=== PATIENT | female | born 1980 | race Caucasian/White ===

== ENCOUNTER 2020-01-03 15:00 | Emergency (ER) | payer BC, MEDICAID ==
[~2020-01-03] VITALS: Ht 152.4 cm; Wt 81.6 kg
[2020-01-03 15:06] VITALS: BP_SYST 137
[2020-01-03] MEDS ORDERED: AMPICILLIN SODIUM/SULBACTAM NA 3 GM in NS 100 ML IV ONE (15:30)
[2020-01-03] MEDS ORDERED: NACL 0.9% 1,000 ML IV ONE (15:30)
[2020-01-03] MEDS ORDERED: DIPHENHYDRAMINE INJ 50 MG/ML VIAL IVP ONE (15:30)
[2020-01-03] MEDS ORDERED: MORPHINE 4 MG/ML INJ. SYRINGE IVP ONE ×2 (15:30→18:15)
[2020-01-03] MEDS ORDERED: AMPICILLIN SODIUM/SULBACTAM NA 3 GM VIAL ONE (15:48)
[2020-01-03 16:23] LABS: CALCIUM 8.1 mg/dL (8.4-11.0); CREATININE 0.71 mg/dL (0.55-1.30); POTASSIUM 4.2 mmol/L (3.5-5.1)
[2020-01-03 16:40] LABS: ALBUMIN 3.4 g/dL (3.4-4.8); TOTAL BILIRUBIN 0.2 mg/dL (0.0-1.0)
[2020-01-03 16:43] LABS: BASOPHILS % (AUTO) 0.6 % (0.0-2.0); EOSINOPHILS # (AUTO) 0.1 K/uL (0.0-0.4); EOSINOPHILS % (AUTO) 1.2 % (0.0-4.0); HEMATOCRIT 33.3 % (36-48); HEMOGLOBIN 10.5 g/dL (12.0-16.0); LYMPHOCYTES # (AUTO) 1.6 K/uL (1.0-5.5); LYMPHOCYTES % (AUTO) 24.6 % (20.5-51.5); MEAN CORPUSCULAR HEMOGLOBIN 23 pg (27-31); MEAN CORPUSCULAR HGB CONC 32 % (32-36); MEAN CORPUSCULAR VOLUME 73 fL (79.0-98.0); MONOCYTES # (AUTO) 0.5 K/uL (0.0-1.0); NEUTROPHILS # (AUTO) 4.3 K/uL (1.8-7.7); NEUTROPHILS % (AUTO) 66.6 % (40.0-70.0); PLATELET COUNT (AUTO) 352 K/uL (130-430); RED BLOOD CELL COUNT(AUTO) 4.53 MIL/uL (4.2-6.2); RED CELL DISTRIBUTION WIDTH 16.7 % (9.0-15.0); WHITE BLOOD COUNT (AUTO) 6.5 K/uL (4.8-10.8)
[2020-01-03] MEDS ORDERED: ONDANSETRON HCL 4 MG/2 ML VIAL ONE (18:26)
[2020-01-03] MEDS ORDERED: ONDANSETRON HCL 4 MG/2 ML VIAL IVP ONE (18:30)
[2020-01-03] MEDS ORDERED: methylPREDNISolone SOD SUCC/PF 62.5 MG/ML VIAL IVP ONE (19:15)
[2020-01-03 20:00] VITALS: BP_SYST 126
== END 2020-01-03 20:00 | disposition short-term general hospital (02) ==
LOC: SED 15:00
DX: J36 Peritonsillar abscess (principal); Z20.828 Contact with and (suspected) exposure to other viral communicable diseases
CPT/HCPCS: 36415; 80053; 81025; 83605; 85025; 87040; 87426; 96365; 96375; 96376; 99285; J0295; J1200; J2270; J2405; J2930; J7030

== ENCOUNTER 2023-12-03 18:11 | Emergency (ER) | payer BC, MEDICAID ==
[~2023-12-03] VITALS: Ht 149.9 cm; Wt 81.6 kg
[2023-12-03 18:25] VITALS: BP_SYST 137; PULSE 79; RESP 22; TEMP 98.9; O2SAT 99
[2023-12-03 19:42] LABS: HEMOGLOBIN 12.7 g/dL (12.0-16.0); MONOCYTES # (AUTO) 0.5 K/uL (0.0-1.0); NEUTROPHILS # (AUTO) 4.9 K/uL (1.8-7.7)
[2023-12-03 19:46] LABS: BASOPHILS # (AUTO) 0.1 K/uL (0.0-0.2); BASOPHILS % (AUTO) 0.5 % (0.0-2.0); EOSINOPHILS # (AUTO) 0.2 K/uL (0.0-0.4); EOSINOPHILS % (AUTO) 2.7 % (0.0-4.0); HEMATOCRIT 36.3 % (36-48); LYMPHOCYTES # (AUTO) 3.6 K/uL (1.0-5.5); LYMPHOCYTES % (AUTO) 38.6 % (20.5-51.5); MEAN CORPUSCULAR HEMOGLOBIN 30 pg (27-31); MEAN CORPUSCULAR HGB CONC 35 % (32-36); MEAN CORPUSCULAR VOLUME 86 fL (79.0-98.0); MONOCYTES % (AUTO) 5.1 % (1.7-9.3); NEUTROPHILS % (AUTO) 53.1 % (40.0-70.0); PLATELET COUNT (AUTO) 283 K/uL (130-430); RED BLOOD CELL COUNT(AUTO) 4.21 MIL/uL (4.2-6.2); RED CELL DISTRIBUTION WIDTH 12.7 % (9.0-15.0); WHITE BLOOD COUNT (AUTO) 9.3 K/uL (4.8-10.8)
[2023-12-03 19:52] LABS: BILIRUBIN,URINE NEGATIVE (NEGATIVE); CLARITY/URINE CLEAR (CLEAR); COLOR,URINE YELLOW (YELLOW); GLUCOSE,URINE NEGATIVE (NEGATIVE); KETONES,URINE TRACE (NEGATIVE); LEUKOCYTE ESTERASE ,URINE NEGATIVE (NEGATIVE); NITRITE, URINE NEGATIVE (NEGATIVE); PH,URINE 6.5 (5.0-8.0); PROTEIN URINE NEGATIVE (NEGATIVE); UROBILINOGEN,URINE 0.2 (0.2-1.0)
[2023-12-03 20:00] LABS: ALBUMIN 3.4 g/dL (3.4-4.8); BILIRUBIN,DIRECT 0.1 mg/dL (0.0-0.3); CALCIUM 8.8 mg/dL (8.4-11.0); CREATININE 0.95 mg/dL (0.55-1.30); POTASSIUM 4.9 mmol/L (3.5-5.1); TOTAL BILIRUBIN 0.1 mg/dL (0.0-1.0); TOTAL PROTEIN, SERUM 6.8 g/dL (6.4-8.3)
[2023-12-03 20:04] LABS: BACTERIA,URINE RARE /HPF (None Seen); BLOOD, URINE TRACE (NEGATIVE); RBC,URINE 0-3 /HPF (0-3); WBC,URINE 0-3 /HPF (0-3)
[2023-12-03 20:05] LABS: MUCUS,URINE None Seen /LPF (None Seen)
[2023-12-03 20:06] LABS: SERUM HCG (QUALITATIVE) NEGATIVE (NEGATIVE)
[2023-12-03] MEDS: PANTOPRAZOLE SODIUM 40 MG/VIAL (PROTONIX) IVP ONE (20:12)
[2023-12-03] MEDS: NACL 0.9% 1,000 ML IV ONE (20:12)
[2023-12-03] MEDS: ONDANSETRON HCL 4 MG/2 ML VIAL IVP ONE (20:13)
[2023-12-03] MEDS: KETOROLAC TROMETHAMINE 30 MG VIAL IVP ONE (20:14)
[2023-12-03] MEDS ORDERED: OMEP40CA20 PO (21:52)
[2023-12-03] MEDS ORDERED: ONDA-8 TL (21:52)
[2023-12-03 22:02] VITALS: BP_SYST 133; PULSE 69; RESP 18; TEMP 97; O2SAT 99
== END 2023-12-03 22:02 | disposition home or self-care (01) ==
LOC: SED 18:11
DX: K21.9 Gastro-esophageal reflux disease without esophagitis (principal); B34.9 Viral infection, unspecified; R11.10 Vomiting, unspecified; R10.13 Epigastric pain; I10 Essential (primary) hypertension
CPT/HCPCS: 99285; 74176; 96374; 96375; 96361; 80076; 80048; 81001; 84703; 85025; 36415; 81025; J1885; J2405; J2470; J7030; 81000; 81015